=== PATIENT | female | born 1960 | race Caucasian/White ===

== ENCOUNTER 2017-04-23 09:40 | Emergency (ER) | payer OTHER ==
[2017-04-23 09:44] VITALS: RESP 18
[2017-04-23] MEDS ORDERED: ACETAMINOPHEN 500 MG TAB PO ONE (09:46)
[2017-04-23] MEDS ORDERED: ACETAMINOPHEN 500 MG TAB ONE (09:47)
--- NOTE | 2017-04-23 09:47 | EDPHY ---
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 She denies any sore throat/cough/neck stiffness. She reports decreased appetite but trying to drink fluids. Did not receive her influenza vaccine this year. She has not taken any antipyretics for her fever. She denies abdominal pain/nausea/vomiting/urinary symptoms. Nonsmoker. No history of lung disease. Modifying Factors: Comment: ROS: see HPI Constitutional: + fever, + chills, no weight loss Eyes: No blurred vision Respiratory: No shortness of breath, no cough Cardiovascular: No chest pain Gastrointestinal: No nausea, no vomiting, no diarrhea Genitourinary: No dysuria Extremities: No myalgias Neurologic: No weakness, no numbness Skin: No rashes Hematologic: No bruising, no bleeding MEDICAL/SURGICAL/SOCIAL HISTORY: Medical history: Depression. Surgical history: Denies Social history: Employed. CONSTITUTIONAL: Adult white female who appears ill but nontoxic in appearance, awake and alert, no obvious distress HEENT: Atraumatic and normocephalic, PERRL, EOMI. Tympanic membranes clear. Oropharynx clear, no exudate, no postpharyngeal edema and moist pink mucosa. Nares patent with no rhinorrhea. Airway patent. No lymphadenopathy. No meningismus. Cardiovascular: Normal S1/S2, tachycardia, regular rhythm, without murmur rub or gallop. PULMONARY/CHEST: Symmetrical and nontender. Clear to auscultation bilaterally. Good air movement. No accessory muscle usage. ABDOMEN: Soft, nondistended, nontender, no rebound, no guarding, no peritoneal signs, no masses or organomegaly. No CVAT. EXTREMITIES: 2/2 pulses, strength 5/5, no deformities, no clubbing, no cyanosis or edema. NEUROLOGICAL: no focal neuro deficits. GCS 15. SKIN: Warm and dry, no erythema. no rash. Good capillary refill. Source: Patient Exam Limitations: No limitations - Personal History LMP (Females 10-55): Post Menopausal Current Tetanus Diphtheria and Acellular Pertussis (TDAP): No - Medical/Surgical History Other PMH: depression - Social History Smoking Status: Never smoked Constitutional: Initial Vital Signs Temperature (C) 39.4 C H 04/23/17 09:41 Heart Rate 112 H 04/23/17 09:41 Respiratory Rate 18 04/23/17 09:41 Blood Pressure 108/85 H 04/23/17 09:41 O2 Sat (%) 92 04/23/17 09:41 O2 Delivery Mode Nasal Cannula O2 (L/minute) 2 Allergies/Adverse Reactions: No Known Allergies Allergy (Unverified 04/23/17 09:44) Home Medications: Medication Instructions Recorded Benzonatate [Tessalon Pearles (RX)] 100 mg PO Q6 PRN #12 cap 04/23/17 Ondansetron Odt [Zofran Odt 4 mg 4 mg PO Q4 PRN #12 tab 04/23/17 (*)] buPROPion SR [Wellbutrin 150mg SR 150 mg PO 04/23/17 (*)] oxyCODONE/APAP 5/325 [Percocet 1 - 2 tab PO Q4H PRN #10 tab 04/23/17 5/325 (*)] traZODone [traZODone 150MG (*)] 150 mg PO 04/23/17 Medical Decision Making ED Course/Re-evaluation: Influenza test, IV fluids, IV and oral medications ordered Suspect influenza; not a Tamiflu candidate Patient febrile with tachycardia upon arrival; given 2 L normal saline, Percocet , IV Toradol and Tessalon Perles Abdomen exam is soft and nontender; doubt surgical abdomen. Influenza A and B is negative; suspect influenza like. 1050: Reassessed patient who reports that symptoms have greatly improved. Patient is adamant that she does not need a urinalysis or chest x-ray. Patient is asking to be discharged home with prescriptions. Advised supportive care. Vitals at discharge greatly improved. This patient was seen under the supervision of my secondary supervising physician. I evaluated care for this patient independently. Differential Diagnosis: Adult fever including but not limited to viral syndromes including influenza, urinary tract infection, pneumonia and sepsis. - Data Points Laboratory Results: 04/23/17 09:50 Nasal Influenza A PCR NEGATIVE FOR FLU A (NEGATIVE) Nasal Influenza B PCR NEGATIVE FOR FLU B (NEGATIVE) Medications Given: Discontinued Medications Acetaminophen (Tylenol) 1,000 mg PO EDNOW ONE Stop: 04/23/17 09:47 Last Admin: 04/23/17 09:48 Dose: 1,000 mg Benzonatate (Tessalon Pearles) 200 mg PO EDNOW ONE Stop: 04/23/17 09:54 Last Admin: 04/23/17 10:05 Dose: 200 mg Sodium Chloride (Ns) 1,000 mls @ 0 mls/hr IV EDNOW ONE; Wide Open PRN Reason: Protocol Stop: 04/23/17 09:55 Last Admin: 04/23/17 09:59 Dose: 1,000 mls Sodium Chloride (Ns) 1,000 mls @ 0 mls/hr IV EDNOW ONE; Wide Open PRN Reason: Protocol Stop: 04/23/17 09:55 Last Admin: 04/23/17 10:44 Dose: 1,000 mls Ketorolac Tromethamine (Toradol) 30 mg IVP ONCE ONE Stop: 04/23/17 09:54 Last Admin: 04/23/17 10:05 Dose: 30 mg Departure - Departure Disposition: Home, Routine, Self-Care Clinical Impression: Influenza-like illness Condition: Good Instructions: Influenza (ED) Additional Instructions: Consume a minimum of 8-10 glasses of water or electrolyte fluid replacement drinks that include Gatorade, Powerade, Pedialyte. Eat a bland diet for the next 48 hours and then slowly advance as tolerated. Take Zofran 1 tab every 4 hours as needed for nausea, vomiting. Take Tylenol 650 mg every 4 hours and/or Ibuprofen 600 mg every 8 hours with food as needed for pain. Use Percocet every 6 hours as needed for severe/break through pain. Do not use Tylenol and Percocet concomitantly. Rest as much as possible until you are feeling better. You are not of Tamiflu candidate. When to Use Tamiflu For Influenza Tamiflu is not a cure. It may take 1-2 days off you illness. The current recommendations for Tamiflu from The Center for Disease Control (CDC ) include giving Tamiflu to: 1 Children less than 5 years of age. 2 People with respiratory problems such as COPD or Asthma. 3 People with heart problems and those with high blood pressure. 4 People with kidney and liver problems. 5 People with weakened immune systems from known disease. 6 People who are on medicine that weakens their immune system. 7 Women who are . 8 People over the age of 65 and folks from nursing homes. 9 People who will be hospitalized. 10 People at risk (as above) who have been closely exposed to someone with confirmed influenza. These recommendations exist to avoid shortages of the medication and to avoid resistance to the medication. Further information is available on the CDC website: www.cdc.gov/N0F3NNQ Please wash your hands frequently, cover your cough, and stay home until you are symptom free. Referrals: PCP Not In,Dictionary [Medical Doctor] - As per Instructions Prescriptions: Benzonatate [Tessalon Pearles (RX)] 100 mg PO Q6 PRN #12 cap PRN Reason: Cough, Moderate Ondansetron Odt [Zofran Odt 4 mg (*)] 4 mg PO Q4 PRN #12 tab PRN Reason: Nausea/Vomiting, Use 1st oxyCODONE/APAP 5/325 [Percocet 5/325 (*)] 1 - 2 tab PO Q4H PRN #10 tab PRN Reason: Pain, Severe
[2017-04-23] MEDS ORDERED: BENZONATATE 100 MG CAP PO ONE (09:53)
[2017-04-23] MEDS ORDERED: KETOROLAC 30 MG/1 ML SDV IVP ONE (09:53)
[2017-04-23] MEDS ORDERED: NS 1,000 ML IV ONE ×2 (09:54)
[2017-04-23 10:45] VITALS: BP 120/76; PULSE 96; TEMP 100.4; O2SAT 94
[2017-04-23] MEDS ORDERED: oxyCODONE IR 5 MG TAB PO ONE (11:06)
== END 2017-04-23 11:25 | disposition home or self-care (01) ==
DX: J11.1 Influenza due to unidentified influenza virus with other respiratory manifestations (principal); E86.9 Volume depletion, unspecified
CPT/HCPCS: 96374; J1885